=== PATIENT | female | born 1975 | race Caucasian/White ===

== ENCOUNTER 2020-06-27 14:47 | Emergency (ER) | payer BC, SELFPAY ==
--- NOTE | 2020-06-27 15:36 | PC.NURSE ---
Pt brought from lobby to ED after registration called and stated that pt felt like she was going to pass out.
--- NOTE | 2020-06-27 15:44 | PC.NURSE ---
Covid swab sent to lab.
--- NOTE | 2020-06-27 15:45 | PC.NURSE ---
Presented to patient room to do EKG. Pt questioned why the test was to be done. After explaining the significance and importance, pt still refused at this time.
[2020-06-27 15:48] VITALS: BP 143/95; PULSE 97; RESP 18; TEMP 36.9; O2SAT 96; BMI 32.5
[2020-06-27 16:00] VITALS: BP 127/89; PULSE 90; RESP 18; O2SAT 95
--- NOTE | 2020-06-27 16:20 | HMH.EDGENADL ---
ED Disposition Clinical Impression: Dehydration Diarrhea Qualifiers: Diarrhea type: unspecified type Qualified Code(s): R19.7 - Diarrhea, unspecified Disposition: Home, Self-Care Condition on Discharge: Good Instructions: DI for Dehydration -- Adult, DI for Diarrhea and Traveler's Diarrhea -- Adult, DI for Nausea -- Adult Additional Instructions: Continue Pedialyte for hydration. Also drink plenty of water. Zofran as needed for nausea. Follow-up with primary care provider if not improved this week. Prescriptions: Ondansetron [Zofran 4mg ODT] 4 mg PO TIDP PRN #10 tab.rapdis PRN Reason: Nausea And Vomiting Prescription Printed Referrals: Jean Millan MD [Primary Care Provider] - - Critical Care Critical Care Time: No Attestation: On 06/27/20, the high probability of a clinically significant, sudden or life threatening deterioration of the following system(s) required my full and direct attention, intervention and personal management. The time I documented below is in addition to time spent performing reported procedures but includes the following listed in this critical care notation. Medical Decision Making - Hero Inquiry Pt receiving controlled substance: No Vital Signs: 06/27/20 15:48 06/27/20 16:00 06/27/20 16:30 Temperature 98.4 F Temperature Source Oral Pulse Rate Pulse Rate [Right Radial] 97 H 90 85 Respiratory Rate 18 18 18 Blood Pressure Blood Pressure [Right Arm] 143/95 H 127/89 129/95 H Blood Pressure Mean [Right Arm] 111 101 106 Blood Pressure Source Blood Pressure Source [Right Arm] Automatic Cuff Blood Pressure Position Blood Pressure Position [Right Arm] Sitting 02 Sat by Pulse Oximetry 96 95 98 Oxygen Delivery Method Room Air Room Air Room Air 06/27/20 17:42 Temperature 98.4 F Temperature Source Oral Pulse Rate 80 Pulse Rate [Right Radial] Respiratory Rate 20 Blood Pressure 137/90 Blood Pressure [Right Arm] Blood Pressure Mean [Right Arm] Blood Pressure Source Automatic Cuff Blood Pressure Source [Right Arm] Blood Pressure Position Sitting Blood Pressure Position [Right Arm] 02 Sat by Pulse Oximetry Oxygen Delivery Method Room Air - Lab Data Lab results reviewed: Yes: I reviewed the patient's lab results. Lab Results 06/27/20 16:18: WBC 6.0, RBC 5.44 H, Hgb 16.1, Hct 49.6 H, MCV 91.1, MCH 29.6, MCHC 32.5, RDW 14.3, Plt Count 307, MPV 7.8, Neut % (Auto) 69.9, Lymph % (Auto) 24.0, Dewitt % (Auto) 4.9, Eos % (Auto) 0.3, Baso % (Auto) 0.9, Neut # (Auto) 4.2, Lymph # (Auto) 1.5, Dewitt # (Auto) 0.3, Eos # (Auto) 0.0, Baso # (Auto) 0.1 06/27/20 16:18: Sodium 137, Potassium 3.9, Chloride 104, Carbon Dioxide 18 L, Anion Gap 18.9 H, BUN 24 H, Creatinine 1.00, Estimated Creat Clear 97, Estimated GFR 60, Est GFR ( Amer) 73, Glucose 126 H, Calcium 9.7, Total Bilirubin 0.7, AST 42 H, ALT 50, Alkaline Phosphatase 92, Total Protein 9.5 H, Albumin 5.1 H, Globulin 4.4 H, Albumin/Globulin Ratio 1.2 Result diagrams: 06/27/20 16:18 06/27/20 16:18 Orders (Tests/Meds): ED MEDICATIONS Discontinued Medications Generic Name Dose Route Start Last Admin Trade Name Hoangq PRN Reason Stop Dose Admin Sodium Chloride 1,000 mls @ 999 mls/hr 06/27/20 16:00 06/27/20 16:08 Sod Chlor 0.9% 1000ml Bag IV 06/27/20 17:00 999 mls/hr .Q1H1M SARAVANAN Administration Sodium Chloride 1,000 mls @ 999 mls/hr 06/27/20 17:45 06/27/20 17:42 Sod Chlor 0.9% 1000ml Bag IV 06/27/20 18:45 Not Given .Q1H1M SARAVANAN Ondansetron HCl 4 mg 06/27/20 15:55 06/27/20 16:08 Ondansetron 4mg/2ml Vial IV 06/27/20 15:56 4 mg ONCE ONE Administration ORDERS Category Date Time Status Covid-19 Nasal PCR ([facility]) Routine Lab 06/27/20 15:40 Received - Reevaluation(s) Time: 17:27 Reevaluation #1: Feels much better after 1 L normal saline. Would like to be discharged. General Adult HPI - General Chief complaint: Nausea/Vomiting/Diarrhea Stated
[2020-06-27 16:30] VITALS: BP 129/95; PULSE 85; RESP 18; O2SAT 98
[2020-06-27 16:30] LABS: Basophils # 0.1 K/mm3 (0-0.2); Basophils % 0.9 % (0.1-2.0); Eosinophils % 0.3 % (0.1-12.0); Hematocrit 49.6 % (37.0-47.0); Hemoglobin 16.1 g/dL (12.2-16.2); Lymphocytes # 1.5 K/mm3 (0.7-4.5); Mean Corpuscular HGB Conc 32.5 g/dL (31.8-35.4); Mean Corpuscular Hemoglobin 29.6 pg (27.0-31.2); Mean Corpuscular Volume 91.1 fl (81-99); Mean Platelet Volume 7.8 fl (7.4-10.4); Monocytes # 0.3 K/mm3 (0.1-1.0); Monocytes % 4.9 % (1.7-9.3); Neutrophils # 4.2 K/mm3 (1.8-7.8); Neutrophils % 69.9 % (37.0-80.0); Platelet Count 307 K/mm3 (142-424); Red Blood Count 5.44 M/mm3 (4.20-5.40); Red Cell Distribution Width 14.3 % (11.5-17.5)
[2020-06-27 16:32] LABS: Chloride 104 mmol/L (98-107); Potassium 3.9 mmoL/L (3.5-5.1); Sodium 137 mmol/L (136-145)
[2020-06-27 16:34] LABS: Blood Urea Nitrogen 24 mg/dl (7-17); Creatinine Clearance Estimated 97 mL/min (50-200); Estimated Glomerular Filt Rate 60 ml/min (>60); GFR (African American) 73 ML/MIN (>60)
[2020-06-27 16:35] LABS: Alanine Aminotransferase 50 U/L (12-78); Albumin Level 5.1 g/dl (3.5-5.0); Albumin/Globulin Ratio 1.2 (1.1-1.8); Alkaline Phosphatase 92 U/L (38-126); Anion Gap 18.9 mEq/L (5-15); Aspartate Amino Transferase 42 U/L (14-36); Bilirubin,Total 0.7 mg/dl (0.2-1.3); Calcium 9.7 mg/dl (8.4-10.2); Carbon Dioxide 18 mmol/L (22.0-30.0); Globulin 4.4 g/dL (1.3-3.2); Glucose 126 mg/dl (74-100); Total Protein,Serum 9.5 g/dl (6.3-8.2)
[2020-06-27 17:42] VITALS: BP 137/90; PULSE 80; RESP 20; TEMP 36.9; O2SAT 97
--- NOTE | 2020-06-28 05:57 | PC.NURSE ---
Pt called requesting results of COVID swab. Pt given results of negative.
== END 2020-06-27 17:43 | disposition home or self-care (01) ==
LOC: UTC 14:53 → ER 15:36
PROVIDERS: Emergency Provider Emergency Medicine; PCP Family Medicine
DX: Z20.822 Contact with and (suspected) exposure to COVID-19 (principal); E86.0 Dehydration
CPT/HCPCS: 80053; 85025; 96365; 96375; 99282; J2405; U0003

== ENCOUNTER 2023-10-05 08:41 | Outpatient (CLI) | payer BC, SELFPAY ==
--- NOTE | 2023-10-05 08:53 | MR_ITS ---
FINAL REPORT CLINICAL HISTORY: chronic neck pain, BUE radiculopathy 18 ML PROHANCE COMPARISON: None FINDINGS: Multi planar MR imaging was obtained of the cervical spine with and without contrast. There is abnormal decreased signal throughout the cervical discs. The vertebrae are of normal height. There is no malalignment. The cervical cord demonstrates normal signal and configuration. C2-C3: There is no evidence of significant disc bulge or protrusion. There is no significant facet hypertrophy. C3-C4: A small annular bulge is present. There is no significant canal or neural foraminal stenosis. C4-C5: A small annular bulge is present with mild left neural foraminal narrowing. C5-C6: There is no evidence of significant disc bulge or protrusion. There is no significant facet hypertrophy. C6-C7: A small annular bulge is present without evidence of significant canal or neural foraminal narrowing. C7-T1: There is no evidence of significant disc bulge or protrusion. There is no significant facet hypertrophy. There is no abnormal contrast enhancement. IMPRESSION: Mild degenerative change is present, without significant canal stenosis and only mild neural foraminal narrowing at the C4-5 level on the left. Reviewed, Interpreted and Dictated by Rafa Xie MD Transcribed by Shasha Morin Authenticated and [facility]
--- NOTE | 2023-10-05 08:53 | MR_ITS ---
FINAL REPORT CLINICAL HISTORY: migraines, chronic neck pain, BUE radiculopathy 18 ML PROHANCE COMPARISON: None FINDINGS: Multiplanar MR imaging of the brain was performed without and with contrast. There is no evidence of intracranial hemorrhage or mass. There are a few tiny foci of scattered increased T2 signal in the deep white matter, which do not enhance after contrast administration. No abnormal extra-axial fluid collection is seen. The ventricular size is within normal limits. There is no evidence of shift of the midline structures. The posterior fossa and brainstem have an unremarkable appearance. No area of abnormal restricted diffusion is identified. No abnormal contrast enhancement is seen. Normal major vessel vascular flow voids are noted. IMPRESSION: Few tiny scattered foci of increased signal in the deep white matter, nonenhancing after contrast administration. These can be seen in patients with migraine or mild chronic ischemic/gliotic microvascular change. Less likely are vasculitis or demyelinating disease. Reviewed, Interpreted and Dictated by Rafa Xie MD Transcribed by Shasha Morin Authenticated and [facility]
--- NOTE | 2023-10-05 10:28 | MM_ITS ---
PROCEDURE INFORMATION: Exam: MG Bilateral Screening 3D Mammography Exam date and time: 10/05/2023 10:17 AM Age: 48 years old Clinical indication: Screening mammogram TECHNIQUE: Imaging protocol: Bilateral Screening tomosynthesis and 2D mammography including computer-aided detection (CAD) when performed. COMPARISON: 1. MG MY Digital Frank Screen BILAT 11/29/2020 8:06 AM 2. MG MY Digital Frank Screen BILAT 08/19/2018 11:35 AM FINDINGS: MAMMOGRAPHY: Breast composition: There are scattered areas of fibroglandular density. Mass: None. Architectural distortion: No new or suspicious architectural distortion. Calcifications: No new or suspicious calcifications are present Asymmetric density: No new or suspicious asymmetric density is present Skin thickening: None. Axillary adenopathy: None. IMPRESSION: No mammographic evidence of malignancy. Recommend annual screening mammography unless otherwise clinically indicated. ASSESSMENT: BI-RADS category 1: Negative.
[2023-10-05] MEDS: SODIUM CHLORIDE 0.9% 10ML SYR (RAD ONLY) 10 ML IV (12:17)
[2023-10-05] MEDS: GADOTERIDOL INJ 17ML SYRINGE 18 ML IV (12:18)
== END 2023-10-05 23:59 ==
LOC: RAD 08:43
PROVIDERS: PCP Nurse Practitioner Family; Visit Provider Nurse Practitioner Family
DX: G43.909 Migraine, unspecified, not intractable, without status migrainosus (principal); M54.10 Radiculopathy, site unspecified; M54.2 Cervicalgia; Z12.31 Encounter for screening mammogram for malignant neoplasm of breast
CPT/HCPCS: 70553; 72156; 76376; 77063; 77067; A9576

== ENCOUNTER → 2024-01-11 10:11 | Outpatient (CLI) | payer BC, SELFPAY | LOC: SL 10:14 | PROVIDERS: PCP Nurse Practitioner Family; Visit Provider Nurse Practitioner Family | DX: R06.83 Snoring (principal) | CPT/HCPCS: G0399 ==

== ENCOUNTER 2024-04-07 08:45 | Day surgery (SDC) | payer BC, SELFPAY ==
--- NOTE | 2024-04-01 12:53 | SUR.PREOP ---
pre op phone call made at 1250 on 04/01. voicemail left with call back number
[2024-04-03 17:01] VITALS: BMI 32.8
--- NOTE | 2024-04-07 08:59 | P.PNANES_ITS ---
[facility] Disclaimer: The information contained in this section may have been updated after the patient was seen, as this information can be updated by other users. Medical History Diarrhea Dehydration Fractured skull Brain bleed TBI (traumatic brain injury) Hypertension Surgical History No significant past surgical history Family History Mother Colon polyps Thyroid disorder Hyperlipidemia Hypertension Stricture esophagus Lesion of liver Father Colon polyps Aneurysm Social History Smoking Status: Never smoker alcohol intake: never substance use type: denies use current occupational status: employed Travel in the last 8 weeks: None [facility] Anesthesia Checklist Patient Identification Patient Identification: Arm Band and Verbal (Name & ) Structural Data Admitted From: Home Planned Operative Procedure/s: Colonoscopy Consent for Planned Operative Procedure(s) Verified: Yes Verified Documents: Surgical Consent and History and Physical NPO Status Verified Time NPO: 00:00 Chart Verification Results Verified: HCG Additional verifications Anesthesia Reactions: No Airway Assessment Mallampati Score:: Class II C-Spine Mobility Assessed: Yes TMJ Mobility Assessed: Yes Dentition: Good Dentition Neurological Assessment Level of Consciousness: Awake Hx Seizures: No Numbness or tingling in extremities: No Anesthesia Plan Anesthesia Risk discussed: Yes Anesthesia Plan: Verified ASA Class: II Anesthesia Type: MAC
[2024-04-07] MEDS: LACTATED RINGERS 1000ML 1,000 ML 25 ML IV (09:06)
[2024-04-07 09:11] VITALS: BP 142/102; PULSE 75; RESP 18; TEMP 36.9; O2SAT 98
[2024-04-07 09:25] LABS: Urine Pregnancy, HCG Qual. Negative (Negative)
--- NOTE | 2024-04-07 09:31 | EXP.HP ---
History of Present Illness *Admission Date: 04/07/24 *Reason for visit:: Screening *History of present illness: Mrs. Hayward is a 48-year-old female who is here for screening colonoscopy. The examination is deemed medically necessary for colonoscopy screening. The patient has been seen, interviewed and examined prior to the procedure by both myself and the anesthesia provider. [facility] Disclaimer: The information contained in this section may have been updated after the patient was seen, as this information can be updated by other users. Medical History Diarrhea Dehydration Fractured skull Brain bleed TBI (traumatic brain injury) Hypertension Surgical History No significant past surgical history Family History Mother Colon polyps Thyroid disorder Hyperlipidemia Hypertension Stricture esophagus Lesion of liver Father Colon polyps Aneurysm Social History Smoking Status: Never smoker alcohol intake: never substance use type: denies use current occupational status: employed Travel in the last 8 weeks: None Other Medical History Have you received the Flu Vaccine for this season: No Have you received the Pneumonia Vaccine: No Review of Systems Review of Systems Review of systems (narrative): Negative *Cardiovascular Comments: Negative *Gastrointestinal Comments: Negative *Genitourinary Comments: Negative *Musculoskeletal Comments: Negative *Neurologic Comments: Negative Meds Home Medications and Allergies Home Medications ?Medication ?Instructions ?Recorded ?Confirmed ?Type losartan 50 mg tablet 50 mg PO DAILY #90 tabs 09/10/23 04/03/24 Rx metoprolol succinate 100 mg 100 mg PO DAILY #90 tabs 09/10/23 04/03/24 Rx tablet,extended release 24 hr zfwkdgl-khudcgikuwmzb-vzwgdimn 250 1 tab PO ONCE PRN Headache 02/04/24 04/03/24 History mg-250 mg-65 mg tablet (Excedrin Extra Strength) cyanocobalamin (vitamin B-12) 5,000 mcg PO DAILY 02/04/24 04/03/24 History 1,000 mcg/15 mL oral liquid multivitamin 1 tab PO DAILY 02/04/24 04/03/24 History ubrogepant 100 mg tablet (Ubrelvy) 100 mg PO ONCE PRN migraine 02/04/24 04/03/24 Rx headache #30 tabs New Prescriptions to Start Prescriptions: Allergies Allergy/AdvReac Type Severity Reaction Status Date / Time morphine Allergy Other Verified 04/07/24 09:10 Exam Data for Last 24 hours Vital signs and Labs for Last 24 Hours: Temp Pulse Resp BP Pulse Ox O2 Del Method 98.4 F 75 18 142/102 H 98 Room Air 04/07/24 09:11 04/07/24 09:11 04/07/24 09:11 04/07/24 09:11 04/07/24 09:11 04/07/24 09:11 Laboratory Results - last 24 hr 04/07/24 09:00: Urine HCG, Qual Negative *Routine HEENT Exam Head: Present normocephalic Eye: Present EOMI and PERRL ENT: Present mucous membranes moist *Routine Neck Exam Neck: Present supple *Routine Respiratory Exam Respiratory: Present CTA bilaterally *Routine Cardiovascular Exam Cardiovascular: Present RRR *Routine Abdominal Exam Abdominal: Present soft and normoactive bowel sounds; Absent tenderness *Routine Rectal Exam Rectal:: deferred *Routine Genitalia Exam Genitalia:: deferred *Routine Extremities Exam Extremities: Absent cyanosis, clubbing or edema *Routine Skin Exam Skin: Present warm; Absent rash *Routine Neurological Exam Neurological: Present alert and oriented X3 Assessment and Plan *Assessment and plan (1) Colon cancer screening: Status: Acute Category: Medical Code(s): Z12.11 - Encounter for screening for malignant neoplasm of colon Plan A/P: 1. Screening for colon cancer is the preprocedural diagnosis. The patient will be anesthetized/sedated using MAC sedation. The patient has been seen and examined. Cardiac and lung assessment prior to the examination is stable. Proceed with planned colonoscopy
[2024-04-07 09:37] VITALS: O2SAT 100
--- NOTE | 2024-04-07 09:42 | HMH.PROCNOTE ---
[facility] Procedure Note Date: 04/07/24 Time: 09:55 Procedure Note:: Colonoscopy Procedure Report: Colonoscopy Endoscopist: Saeid Self II, MD Referring physician: DAE Rodriguez Date of Procedure: April 07, 2024 Equipment: Olympus 190 variable stiffness pediatric colonoscope Sedation: MAC sedation Indication: Mrs. Hayward is a 48-year-old female who is here for initial screening colonoscopy. She reports no abdominal pain, weight loss, change in her bowel habits or rectal bleeding. Does have occasional spotting of blood from internal hemorrhoids. She reports no family history of colon cancer. She does have a family of colon polyps on her mother's and father side. Procedure: Prior to the procedure, a history and physical exam was performed, and patient's medications and allergies were reviewed. The risks, benefits and alternatives of the sedation and procedure were discussed with the patient. All questions were answered and informed consent was obtained. The patient was brought to the procedure room. Patient identification and proposed procedure were verified by the physician and the nurse. The patient was placed in a left lateral decubitus position and the scope was passed under direct vision. Throughout the procedure, the patient's blood pressure, pulse, and oxygen saturations were monitored continuously. The colonoscopy was accomplished without difficulty. The patient tolerated the procedure well. Findings: On digital rectal examination there was normal rectal tone. There were no external hemorrhoids. The colonoscope was introduced through the anal canal to the rectum and advanced to the cecum. The ileocecal valve and appendiceal orifice were identified. The scope was advanced a short distance into the ileum which appeared grossly normal. The scope was then withdrawn into the colon. The cecum, ascending, transverse, descending, sigmoid and rectum were grossly normal. There were no mucosal abnormalities identified. Upon retroflexion within the rectum there were grade 1 internal hemorrhoids.The preparation was excellent throughout with [place] Preparation Score of 9. The cecal time was 10 minutes. Impression: 1. Normal colonoscopy with intubation of the terminal ileum 2. Grade 1 internal hemorrhoids Plan: The patient will not require screening/surveillance colonoscopy again for 10 years by ACS guidelines. I will recommend bulking fiber psyllium supplementation on a maintenance basis.
[2024-04-07 09:57] VITALS: BP 114/74; PULSE 78; RESP 18; TEMP 36.1; O2SAT 98
[2024-04-07 10:03] VITALS: BP 113/76; PULSE 71; RESP 18; O2SAT 100
[2024-04-07 10:13] VITALS: BP 126/84; PULSE 69; RESP 18; O2SAT 98
[2024-04-07 10:28] VITALS: BP 130/78; PULSE 73; RESP 18; O2SAT 98
== END 2024-04-07 10:28 | disposition home or self-care (01) ==
PROVIDERS: PCP Nurse Practitioner Family; Visit Provider Internal Medicine Gastroenterology
PROC: (CPT G0121; principal; 2024-04-07 10:00)
DX: Z12.11 Encounter for screening for malignant neoplasm of colon (principal); K64.0 First degree hemorrhoids
CPT/HCPCS: G0121; 81025; J7120

== ENCOUNTER 2024-08-21 13:23 | Outpatient (CLI) | payer BC, SELFPAY | END 2024-08-21 23:59 | disposition home or self-care (01) | LOC: LAB.DROPOF 08-25 13:23 | PROVIDERS: PCP Nurse Practitioner Family; Visit Provider Nurse Practitioner Family | DX: N39.0 Urinary tract infection, site not specified (principal); R39.89 Other symptoms and signs involving the genitourinary system; M54.50 Low back pain, unspecified; M25.559 Pain in unspecified hip | CPT/HCPCS: 87086 ==

== ENCOUNTER 2024-08-27 14:14 | Outpatient (CLI) | payer BC, SELFPAY ==
--- NOTE | 2024-08-27 14:17 | XR_ITS ---
FINAL REPORT CLINICAL HISTORY: urinary symptoms COMPARISON: None FINDINGS: SINGLE VIEW ABDOMEN A single view of the abdomen was obtained. There is a nonobstructive bowel gas pattern. There are no abnormally dilated loops of small bowel. There are several right upper quadrant calcifications measuring up to 8 mm in size, that may represent gallstones. IMPRESSION: Nonobstructive bowel gas pattern. Right upper quadrant calcifications that may represent gallstones. Reviewed, Interpreted and Dictated by Rafa Xie MD Transcribed by Shasha Morin Authenticated and [facility]
== END 2024-08-27 23:59 | disposition home or self-care (01) ==
LOC: RAD 14:15
PROVIDERS: PCP Nurse Practitioner Family; Visit Provider Nurse Practitioner Family
DX: R39.89 Other symptoms and signs involving the genitourinary system (principal); N39.0 Urinary tract infection, site not specified
CPT/HCPCS: 74018

== ENCOUNTER 2024-09-01 07:55 | Outpatient (CLI) | payer BC, SELFPAY ==
--- NOTE | 2024-09-01 07:56 | US_ITS ---
FINAL REPORT CLINICAL HISTORY: RUQ pain, gallstones COMPARISON: None FINDINGS: Sonographic images of the right upper quadrant were obtained. The pancreas is partially obscured. There is fatty infiltration of the liver. There is a single stone in the gallbladder neck measuring 7 mm. There is no gallbladder wall thickening or distention. There is no evidence of biliary ductal dilatation. The common duct measures 2 mm. There is a 3.3 cm simple cyst in the upper pole of the right kidney. IMPRESSION: Uncomplicated cholelithiasis. Reviewed, Interpreted and Dictated by Daniel Islas MD Transcribed by Elisabeth Ty Authenticated and [facility]
== END 2024-09-01 23:59 | disposition home or self-care (01) ==
LOC: RAD 07:56
PROVIDERS: PCP Nurse Practitioner Family; Visit Provider Nurse Practitioner Family
DX: K80.20 Calculus of gallbladder without cholecystitis without obstruction (principal)
CPT/HCPCS: 76705

== ENCOUNTER 2024-09-14 04:36 | Emergency (ER) | payer BC, SELFPAY ==
[2024-09-14 04:44] VITALS: BP 101/82; PULSE 87; RESP 18; TEMP 36.9; O2SAT 97; BMI 33.5
[2024-09-14 05:00] VITALS: BP 121/74; PULSE 84; RESP 16; O2SAT 100
--- NOTE | 2024-09-14 05:10 | CT_ITS ---
PROCEDURE INFORMATION: Exam: CT Abdomen And Pelvis With Contrast Exam date and time: 09/14/2024 5:57 AM Age: 49 years old Clinical indication: Abdominal pain; Flank; Left; Additional info: L flank pain into groin, bladder urgency/freq TECHNIQUE: Imaging protocol: Computed tomography of the abdomen and pelvis with contrast. Radiation optimization: All CT scans at this facility use at least one of these dose optimization techniques: automated exposure control; mA and/or kV adjustment per patient size (includes targeted exams where dose is matched to clinical indication); or iterative reconstruction. Contrast material: ISOVUE; Contrast volume: 75 ml; Contrast route: IV; COMPARISON: CR XR KUB 08/27/2024 2:23 PM FINDINGS: Lungs: The lung bases are clear. Liver: Hepatic steatosis. No focal liver lesion identified. Gallbladder and biliary ducts: Cholelithiasis but no CT evidence of cholecystitis. Pancreas: The pancreas is normal in appearance. No evidence of pancreatic ductal dilatation. Spleen: The spleen is normal in appearance. Adrenal glands: The adrenal glands are normal in appearance. Kidneys and ureters: There is moderate left hydronephrosis and left hydroureter secondary to a 1 mm and 4 mm calculus in the distal left ureter. There are mild inflammatory changes surrounding the left kidney. There is subtle diffuse hypoenhancement of the left kidney relative to the right. There is a simple appearing 3.5 cm right renal cortical cyst which does not appear to require imaging follow-up. Stomach and bowel: The small bowel loops are not thickened and are nondilated. The colon is unremarkable. Appendix: The appendix is normal in appearance. No evidence of appendicitis. Intraperitoneal space: Unremarkable. No free air. No significant fluid collection. Vasculature: Unremarkable. No abdominal aortic aneurysm. Lymph nodes: Unremarkable. No enlarged lymph nodes. Urinary bladder: Unremarkable as visualized. Reproductive: Simple appearing 3 cm right ovarian cyst. Small left ovarian follicle. Bones/joints: No acute osseous lesions. There are mild chronic degenerative changes in the lower thoracic spine and lower lumbar spine. Soft tissues: Unremarkable. IMPRESSION: 1. Moderate left hydronephrosis and left hydroureter secondary to a 1 mm and a 4 mm calculus in the distal left ureter. 2. Hepatic steatosis. 3. Cholelithiasis but no CT evidence of cholecystitis. 4. Bilateral cystic adnexa. COMMENTS: Consistent with the [employer]'s Incidental Findings Committee white paper (J Am Roddy Radiol 2018): Any incidental renal lesion less than 1 cm or classified as too small to characterize, or any incidental cystic renal lesion characterized as simple-appearing, is likely benign. No follow-up imaging is recommended for these lesions per consensus recommendations based on imaging criteria.
[2024-09-14 05:21] LABS: Albumin Level 4.4 g/dl (3.5-5.0); Chloride 103 mmol/L (98-107); Potassium 4.6 mmoL/L (3.5-5.1); Sodium 137 mmol/L (136-145)
[2024-09-14 05:22] LABS: HCG Qualitative, Serum Negative (Negative)
[2024-09-14 05:23] LABS: Alanine Aminotransferase 24 U/L (12-78); Anion Gap 15.6 mEq/L (5-15); Aspartate Amino Transferase 37 U/L (14-36); Blood Urea Nitrogen 17 mg/dl (7-17); Carbon Dioxide 23 mmol/L (22.0-30.0); Creatinine Clearance Estimated 106 mL/min (50-200); Estimated Glomerular Filt Rate 67 ml/min (>60); GFR (African American) 81 ML/MIN (>60)
[2024-09-14 05:24] VITALS: BP 129/87; PULSE 80; RESP 16; O2SAT 98
[2024-09-14 05:24] LABS: Albumin/Globulin Ratio 1.5 (1.1-1.8); Alkaline Phosphatase 53 U/L (38-126); Bilirubin,Total 0.8 mg/dl (0.2-1.3); Calcium 9.6 mg/dl (8.4-10.2); Globulin 2.9 g/dL (1.3-3.2); Glucose 123 mg/dl (74-100); Total Protein,Serum 7.3 g/dl (6.3-8.2)
[2024-09-14 05:30] VITALS: BP 144/91; PULSE 79; RESP 18; O2SAT 100
[2024-09-14 05:39] LABS: Basophils # 0.1 K/mm3 (0-0.2); Basophils % 0.5 % (0.1-2.0); Eosinophils # 0.1 K/mm3 (0.0-0.4); Eosinophils % 1.1 % (0.1-12.0); Hematocrit 36.7 % (37.0-47.0); Lymphocytes % 20.5 % (10-50); Mean Corpuscular HGB Conc 32.7 g/dL (31.8-35.4); Mean Corpuscular Hemoglobin 30.4 pg (27.0-31.2); Mean Corpuscular Volume 92.9 fl (81-99); Mean Platelet Volume 9.5 fl (7.4-10.4); Monocytes # 0.9 K/mm3 (0.1-1.0); Monocytes % 8.8 % (1.7-9.3); Neutrophils # 6.8 K/mm3 (1.8-7.8); Neutrophils % 68.8 % (37.0-80.0); Platelet Count 258 K/mm3 (142-424); Red Blood Count 3.95 M/mm3 (4.20-5.40); Red Cell Distribution Width 12.9 % (11.5-17.5); White Blood Count 9.8 K/mm3 (4.8-10.8)
[2024-09-14 05:47] LABS: Appearance,Urine Slightly Cloudy (Clear); Bilirubin,Urine Negative (Negative); Blood, Urine 2+ (Negative); Color,Urine YELLOW (Yellow); Glucose,Urine (UA) Negative (Negative); Ketones,Urine Negative (Negative); Leukocyte Esterase,Urine Negative (Negative); Microscopic, Urine URINE MICROSCOPIC (MICROSCOPIC); Nitrate,Urine Negative (Negative); PH,Urine 5.5 (5.0-8.5); Protein,Urine Negative (Negative); Specific Gravity, Urine >= 1.030 (1.005-1.030); Urobilinogen,Urine 0.2 EU/dl (0.2)
[2024-09-14 05:49] LABS: INR 0.93 (0.9-1.1); Prothrombin Time 10.5 seconds (10.1-12.5)
[2024-09-14 05:59] LABS: Bacteria,Urine Trace /lpf; Mucus,Urine Trace /lpf; WBC,Urine Occasional #/hpf (0-3)
--- NOTE | 2024-09-14 06:00 | ED_ITS ---
Discharge Plan Disposition Patient Disposition: Home, Self-Care Condition: Good Prescriptions Prescriptions: New naproxen 500 mg tablet,delayed release (DR/EC) 500 mg PO BID Qty: 10 0RF tamsulosin 0.4 mg capsule 0.4 mg PO DAILY Qty: 14 0RF oxycodone 5 mg tablet 5 mg PO Q8H PRN (Reason: pain) Qty: 5 0RF ondansetron 4 mg tablet,disintegrating 4 mg PO Q8H PRN (Reason: nausea and vomiting) 5 Days Qty: 10 0RF No Action losartan 50 mg tablet 50 mg PO DAILY Qty: 90 3RF metoprolol succinate 100 mg tablet extended release 24 hr 100 mg PO DAILY Qty: 90 3RF Excedrin Extra Strength 250-250-65 mg tablet 1 tab PO ONCE PRN (Reason: Headache) multivitamin Tablet 1 tab PO DAILY cyanocobalamin (vitamin B-12) 1,000 mcg/15 mL liquid 5,000 mcg PO DAILY Patient Comments: Pt takes [place] B12 Liquid 5,000 mcg per 1 mL hydroxyzine HCl 25 mg tablet 25 mg PO TID PRN (Reason: anxiety) Qty: 90 0RF desvenlafaxine succinate [Pristiq] 50 mg tablet extended release 24 hr 50 mg PO DAILY Qty: 90 3RF nitrofurantoin monohyd/m-cryst [Macrobid] 100 mg capsule 100 mg PO Q12H 7 Days Qty: 14 0RF Rx Instructions: must administer with a meal/food Ubrelvy 100 mg tablet 100 mg PO ONCE PRN (Reason: migraine headache) Qty: 30 1RF Referrals Follow up/Referrals: Viviane Sullivan APRN [Primary Care Provider] - See instructions Clinical Impressions Clinical Impression: Urolithiasis Instructions Patient Instructions: DI for Kidney Stones Print Language Print Language: Maldivian Discharge ED Provider: Suyapa Lozano General Adult HPI <Makenzie Bush MD - Last Filed: 09/14/24 07:04> General Chief complaint: Back Pain/Injury Stated complaint: pain in left side back and legs Time Seen by Provider: 09/14/24 04:59 Mode of Arrival: Ambulatory Source of Information: Patient Description of Symptoms (Recalled from ER Triage Doc. by RN): PT HERE W/ C/O L SIDED FLANK PAIN THAT RADIATES INTO GROIN. SEES UROLOGIST ON SUNDAY HOWEVER COULDNT WAIT DUE TO INCREASED PAIN. PT REPORTS URINARY HESITANCY AND HOT FLASHES. History of Present Illness HPI narrative: 49-year-old female presents to the ER with urinary complaints. She has a history of hypertension. She reports for multiple weeks she has felt a sensation of constantly needing to use the restroom. Sometimes she has extreme urgency and she describes it as a sensation of always feeling like you need to hold your urine . Patient reports yesterday evening she developed left low back pain and it started to radiate into the groin. She states her pain continued to progressively worsen and was Uncomfortable all night. She reports she was unable to sleep. She developed sharp, shooting pain. She also states that pressure sensation in her bladder is worse than normal. She has no history of prolapse and does not describe a sensation of her organs falling out. She states she feels like she chronically needs to use the restroom. She states she was placed on antibiotics briefly because they thought she had a UTI but her culture was negative so she was taken off antibiotics. She reports no painful urination, no hematuria, no fevers or chills but states she was having hot flashes. No chest pain or difficulty breathing, no nausea, vomiting, or changes in bowel habits. Related Data Home Medications ?Medication ?Instructions ?Recorded ?Confirmed [id number] 250 1 tab PO ONCE PRN Headache 02/04/24 08/21/24 mg-250 mg-65 mg tablet (Excedrin Extra Strength) cyanocobalamin (vitamin B-12) 5,000 mcg PO DAILY 02/04/24 08/21/24 1,000 mcg/15 mL oral liquid multivitamin 1 tab PO DAILY 02/04/24 08/21/24 Previous Rx's ?Medication ?Instructions ?Recorded losartan 50 mg tablet 50 mg PO DAILY #90 tabs 09/10/23 metoprolol succinate 100 mg 100 mg PO DAILY #90 tabs 09/10/23 tablet,extended release 24 hr ubrogepant 100 mg tablet (Ubrelvy) 100 mg PO ONCE PRN migraine 05/09/24 headache #30 tabs hydroxyzine HCl 25 mg tablet 25 mg PO TID PRN anxiety #90 tabs 06/26/24 desvenlafaxine succinate 50 mg 50 mg PO DAILY #90 tabs 07/14/24 tablet,extended release 24 hr (Pristiq) nitrofurantoin 100 mg PO Q12H 7 days #14 caps 08/21/24 monohydrate/macrocrystals 100 mg capsule (Macrobid) naproxen 500 mg tablet,delayed 500 mg PO BID #10 tabs 09/14/24 release ondansetron 4 mg disintegrating 4 mg PO Q8H PRN nausea and 09/14/24 tablet vomiting 5 days #10 tabs oxycodone 5 mg tablet 5 mg PO Q8H PRN pain #5 tabs 09/14/24 tamsulosin 0.4 mg capsule 0.4 mg PO DAILY #14 caps 09/14/24 Allergies Allergy/AdvReac Type Severity Reaction Status Date / Time morphine Allergy Other Verified 08/21/24 11:04 [facility] <Makenzie Bush MD - Last Filed: 09/14/24 07:04> [facility] Disclaimer: The information contained in this section may have been updated after the patient was seen, as this information can be updated by other users. Medical History (Updated 09/14/24 @ 08:50 by Suyapa Lozano MD) UTI (urinary tract infection) Diarrhea Dehydration Fractured skull Brain bleed TBI (traumatic brain injury) Hypertension Surgical History No significant past surgical history Family History Mother Colon polyps Thyroid disorder Hyperlipidemia Hypertension Stricture esophagus Lesion of liver Father Colon polyps Aneurysm Social History Smoking Status: Never smoker alcohol intake: never substance use type: denies use current occupational status: employed Travel in the last 8 weeks: None Have you lived/traveled outside [place] in past 30 days?: No Contact w/someone who lives/traveled outside US past 30 days?: No Exposure to someone with infectious disease in past 14 days?: No Do you have a fever (greater than 100.4 F or 38 C)?: No Have you tested positive for COVID-19: No Exposed to someone with COVID-19 in past 14 days?: No Do you have a sore throat?: No Do you have a cough?: No Do you have any weakness?: No Do you have any diarrhea?: No Are you experiencing any unusual bleeding?: No Do you have any muscle aches/pain?: No Do you have any abdominal pain?: No Are you experiencing loss of taste or smell?: No Other Medical History Have you received the Flu Vaccine for this season: No Have you received the Pneumonia Vaccine: No <Makenzie Bush MD - Last Filed: 09/14/24 07:04> ROS Obtained: Yes Systems reviewed as appropriate & no additional complaints except as documented Per HPI Physical Exam <Makenzie Bush MD - Last Filed: 09/14/24 07:04> General General appearance: alert and in no apparent distress Head Head exam: atraumatic and normocephalic Eye Eye exam: Present PERRL and EOMI ENT ENT exam: Present mucous membranes moist Neck Neck exam: Present normal inspection and full ROM Chest Chest inspection: Present symmetric chest wall rise Respiratory Respiratory exam: Present normal lung sounds bilaterally; Absent respiratory distress, wheezes or stridor Cardiovascular Cardiovascular exam: Present regular rate and normal rhythm Abdominal Exam Abdominal exam: Present soft and tenderness (Suprapubic and left lower quadrant, mild); Absent distention, guarding, rebound or rigidity Extremities Exam Extremities exam: Present full ROM Back Exam Back exam: Present CVA tenderness (L) (Mild low left CVA); Absent CVA tenderness (R) Neurological Exam Neurological exam: Present alert and oriented X3; Absent motor sensory deficit Psychiatric Psychiatric exam: Present normal affect and normal mood Skin Skin exam: Present warm and dry Medical Decision Making <Makenzie Bush MD - Last Filed: 09/14/24 07:04> Medical Records Medical records reviewed: Yes I reviewed the patient's medical records. Screening: Per USPSTF and CDC recommendations, given the prevalence of disease in our region, it is our hospital?s policy to screen for HIV and viral Hepatitis for all patients aged 18 and over and those with ongoing risk factors. MR Comment: Patient right upper quadrant ultrasound that demonstrated uncomplicated cholelithiasis on 08/28/2024. This was performed after KUB had been ordered and demonstrated possible right upper quadrant stone. Patient reports the x-ray had been ordered to evaluate her urinary concerns. Review of note from Dr. Dennis from August 21, 2024 demonstrates patient presented with UTI symptoms including urgency and hesitancy with abdominal pain and pressure with low back pain. He believed her UA in the office was consistent with UTI so he started her on Macrobid. Urine culture from that encounter demonstrated no growth after 2 days. Hero Inquiry Pt receiving controlled substance: No Vital Signs: 09/14/24 04:44 09/14/24 05:00 09/14/24 05:24 Temperature 98.4 F Temperature Source Oral Pulse Rate 84 80 Pulse Rate [Apical] 87 Respiratory Rate 18 16 16 Blood Pressure 121/74 129/87 Blood Pressure [Right Arm] 101/82 L Blood Pressure Mean 84 101 Blood Pressure Mean [Right Arm] 88 Blood Pressure Source Blood Pressure Position 02 Sat by Pulse Oximetry 97 100 98 Oxygen Delivery Method Room Air 09/14/24 05:30 09/14/24 06:58 09/14/24 09:00 Temperature 98.4 F Temperature Source Oral Pulse Rate 79 73 73 Pulse Rate [Apical] Respiratory Rate 18 16 16 Blood Pressure 144/91 H 126/84 126/84 Blood Pressure [Right Arm] Blood Pressure Mean 108 98 Blood Pressure Mean [Right Arm] Blood Pressure Source Automatic Cuff Blood Pressure Position Supine 02 Sat by Pulse Oximetry 100 100 Oxygen Delivery Method Room Air Lab Data Lab Results 09/14/24 05:00: Sodium 137, Potassium 4.6, Chloride 103, Carbon Dioxide 23, A nion Gap 15.6 H, BUN 17, Creatinine 0.90, Estimated Creat Clear 106, Estimated GFR 67, Est GFR ( Amer) 81, Glucose 123 H, Calcium 9.6, Total Bilirubin 0.8, AST 37 H, ALT 24, Alkaline Phosphatase 53, Total Protein 7.3, Albumin 4.4, Globulin 2.9, Albumin/Globulin Ratio 1.5, Serum HCG, Qual Negative 09/14/24 05:33: WBC 9.8, RBC 3.95 L, Hgb 12.0 L, Hct 36.7 L, MCV 92.9, MCH 30.4, MCHC 32.7, RDW 12.9, Plt Count 258, MPV 9.5, Neut % (Auto) 68.8, Lymph % (Auto) 20.5, [place] % (Auto) 8.8, Eos % (Auto) 1.1, Baso % (Auto) 0.5, Neut # (Auto) 6.8, Lymph # (Auto) 2.0, [place] # (Auto) 0.9, Eos # (Auto) 0.1, Baso # (Auto) 0.1, PT 10.5, INR 0.93 09/14/24 05:42: Urine Color Yellow, Urine Appearance Slightly cloudy, Urine pH 5.5, Ur Specific [place] >= 1.030, Urine Protein Negative, Urine Glucose (UA) Negative, Urine Ketones Negative, Urine Blood 2+ A, Urine Nitrate Negative, Urine Bilirubin Negative, Urine Urobilinogen 0.2, Ur Leukocyte Esterase Negative, Urine RBC 5-10, Urine WBC Occasional, Ur Squamous Epith Cells 5-10, Urine Bacteria Trace, Urine Mucus Trace 09/14/24 05:33 09/14/24 05:00 Orders (Tests/Meds): ED MEDICATIONS Discontinued Medications Generic Name Dose Route Start Last Admin Trade Name Freq PRN Reason Stop Dose Admin Lactated Ringer's 1,000 mls @ 999 mls/hr 09/14/24 06:44 09/14/24 06:50 Lactated Ringer's 1000 Ml Bag IV 09/14/24 07:44 999 mls/hr .Q1H1M ONE Administration Iopamidol 75 ml 09/14/24 06:08 09/14/24 06:08 Iopamidol-370 (76%);100ml Bottle IV 09/14/24 06:09 75 ml ONCE ONE Administration Ketorolac Tromethamine 15 mg 09/14/24 06:44 09/14/24 06:51 Ketorolac 30mg/Ml Vial IV 09/14/24 06:45 15 mg ONCE ONE Administration Sodium Chloride 10 ml 09/14/24 06:08 09/14/24 06:08 Sodium Chloride 0.9% 10ml Syr (Rad Only) IV 10/14/24 06:07 10 ml NEEDED PRN Administration Maintain IV Site ORDERS Category Date Time Status CT abdomen pelvis w con Stat Cat Scan 09/14/24 05:10 Completed CBC w/Auto Diff [Complete Blood Count Auto Diff] Stat Lab 09/14/24 05:33 Completed CMP [Comprehensive Metabolic Panel] Stat Lab 09/14/24 05:00 Completed HCG Qualitative, Serum Stat Lab 09/14/24 05:00 Completed PT INR [Prothrombin Time INR] Stat Lab 09/14/24 05:33 Completed Urinalysis and Microscopic Stat Lab 09/14/24 05:42 Completed Medical Decision Narrative: In summary, this 49-year-old female with comorbidities described in the HPI which may not be at goal for presents to the emergency department today with urinary urgency, hesitancy, pressure, left flank pain with sharp shooting pains into the groin. On initial evaluation patient is hemodynamically stable, afebrile, currently reports her pain is tolerable, physical exam notable for left lower quadrant tenderness to palpation which is mild as well as suprapubic discomfort with palpation. Additionally patient has mild low left CVA tenderness with no midline tenderness. Differential diagnosis includes but is not limited to urinary tract infection, pyelonephritis, kidney stone, I considered the possibility of , kidney dysfunction, bladder mass, bladder spasm, among others. Based on these concerns, I ordered serum labs, CT imaging. Patient is not requesting pain medication at this time. Labs personally reviewed demonstrate no leukocytosis, mild anemia with hemoglobin 12.0 nonactionable. Platelets normal. PT/INR normal, CMP nonactionable, hCG negative, UA with blood and contaminated with squamous cells but only occasional WBCs, trace bacteria, nitrates negative. No evidence of infection. CT abdomen pelvis personally interpreted demonstrates right renal cyst as well as I believe a left ureteral stone with moderate hydronephrosis. Radiology read pending at the time of physician handoff. Patient is receiving Toradol and IV fluids. Patient handed off to in stable condition pending radiology reads. <Suyapa Lozano MD - Last Filed: 09/14/24 15:55> Vital Signs: 09/14/24 04:44 09/14/24 05:00 09/14/24 05:24 Temperature 98.4 F Temperature Source Oral Pulse Rate 84 80 Pulse Rate [Apical] 87 Respiratory Rate 18 16 16 Blood Pressure 121/74 129/87 Blood Pressure [Right Arm] 101/82 L Blood Pressure Mean 84 101 Blood Pressure Mean [Right Arm] 88 Blood Pressure Source Blood Pressure Position 02 Sat by Pulse Oximetry 97 100 98 Oxygen Delivery Method Room Air 09/14/24 05:30 09/14/24 06:58 09/14/24 09:00 Temperature 98.4 F Temperature Source Oral Pulse Rate 79 73 73 Pulse Rate [Apical] Respiratory Rate 18 16 16 Blood Pressure 144/91 H 126/84 126/84 Blood Pressure [Right Arm] Blood Pressure Mean 108 98 Blood Pressure Mean [Right Arm] Blood Pressure Source Automatic Cuff Blood Pressure Position Supine 02 Sat by Pulse Oximetry 100 100 Oxygen Delivery Method Room Air Lab Data Lab Results 09/14/24 05:00: Sodium 137, Potassium 4.6, Chloride 103, Carbon Dioxide 23, A nion Gap 15.6 H, BUN 17, Creatinine 0.90, Estimated Creat Clear 106, Estimated GFR 67, Est GFR ( Amer) 81, Glucose 123 H, Calcium 9.6, Total Bilirubin 0.8, AST 37 H, ALT 24, Alkaline Phosphatase 53, Total Protein 7.3, Albumin 4.4, Globulin 2.9, Albumin/Globulin Ratio 1.5, Serum HCG, Qual Negative 09/14/24 05:33: WBC 9.8, RBC 3.95 L, Hgb 12.0 L, Hct 36.7 L, MCV 92.9, MCH 30.4, MCHC 32.7, RDW 12.9, Plt Count 258, MPV 9.5, Neut % (Auto) 68.8, Lymph % (Auto) 20.5, [place] % (Auto) 8.8, Eos % (Auto) 1.1, Baso % (Auto) 0.5, Neut # (Auto) 6.8, Lymph # (Auto) 2.0, [place] # (Auto) 0.9, Eos # (Auto) 0.1, Baso # (Auto) 0.1, PT 10.5, INR 0.93 09/14/24 05:42: Urine Color Yellow, Urine Appearance Slightly cloudy, Urine pH 5.5, Ur Specific [place] >= 1.030, Urine Protein Negative, Urine Glucose (UA) Negative, Urine Ketones Negative, Urine Blood 2+ A, Urine Nitrate Negative, Urine Bilirubin Negative, Urine Urobilinogen 0.2, Ur Leukocyte Esterase Negative, Urine RBC 5-10, Urine WBC Occasional, Ur Squamous Epith Cells 5-10, Urine Bacteria Trace, Urine Mucus Trace Orders (Tests/Meds): ED MEDICATIONS Discontinued Medications Generic Name Dose Route Start Last Admin Trade Name Freq PRN Reason Stop Dose Admin Lactated Ringer's 1,000 mls @ 999 mls/hr 09/14/24 06:44 09/14/24 06:50 Lactated Ringer's 1000 Ml Bag IV 09/14/24 07:44 999 mls/hr .Q1H1M ONE Administration Iopamidol 75 ml 09/14/24 06:08 09/14/24 06:08 Iopamidol-370 (76%);100ml Bottle IV 09/14/24 06:09 75 ml ONCE ONE Administration Ketorolac Tromethamine 15 mg 09/14/24 06:44 09/14/24 06:51 Ketorolac 30mg/Ml Vial IV 09/14/24 06:45 15 mg ONCE ONE Administration Sodium Chloride 10 ml 09/14/24 06:08 09/14/24 06:08 Sodium Chloride 0.9% 10ml Syr (Rad Only) IV 10/14/24 06:07 10 ml NEEDED PRN Administration Maintain IV Site ORDERS Category Date Time Status CT abdomen pelvis w con Stat Cat Scan 09/14/24 05:10 Completed CBC w/Auto Diff [Complete Blood Count Auto Diff] Stat Lab 09/14/24 05:33 Completed CMP [Comprehensive Metabolic Panel] Stat Lab 09/14/24 05:00 Completed HCG Qualitative, Serum Stat Lab 09/14/24 05:00 Completed PT INR [Prothrombin Time INR] Stat Lab 09/14/24 05:33 Completed Urinalysis and Microscopic Stat Lab 09/14/24 05:42 Completed Medical Decision Narrative: In summary, this 49-year-old female with comorbidities described in the HPI which may not be at goal for presents to the emergency department today with urinary urgency, hesitancy, pressure, left flank pain with sharp shooting pains into the groin. On initial evaluation patient is hemodynamically stable, afebrile, currently reports her pain is tolerable, physical exam notable for left lower quadrant tenderness to palpation which is mild as well as suprapubic discomfort with palpation. Additionally patient has mild low left CVA tenderness with no midline tenderness. Differential diagnosis includes but is not limited to urinary tract infection, pyelonephritis, kidney stone, I considered the possibility of , kidney dysfunction, bladder mass, bladder spasm, among others. Based on these concerns, I ordered serum labs, CT imaging. Patient is not requesting pain medication at this time. Labs personally reviewed demonstrate no leukocytosis, mild anemia with hemoglobin 12.0 nonactionable. Platelets normal. PT/INR normal, CMP nonactionable, hCG negative, UA with blood and contaminated with squamous cells but only occasional WBCs, trace bacteria, nitrates negative. No evidence of infection. CT abdomen pelvis personally interpreted demonstrates right renal cyst as well as I believe a left ureteral stone with moderate hydronephrosis. Radiology read pending at the time of physician handoff. Patient is receiving Toradol and IV fluids. Patient handed off to in stable condition pending radiology reads. On handoff radiology reads with 1 mm and 4 mm stones. Patient's pain is tolerable amendable to discharge with outpatient follow-up with her urologist early this week with tamsulosin and naproxen prescriptions with as needed oxycodone. Strict return precautions discussed. Critical Care <Makenzie Bush MD - Last Filed: 09/14/24 07:04> Critical Care Time Critical Care Time: No
[2024-09-14] MEDS: SODIUM CHLORIDE 0.9% 10ML SYR (RAD ONLY) 10 ML IV (06:08)
[2024-09-14] MEDS: IOPAMIDOL-370 (76%);100ML BOTTLE 75 ML IV (06:08)
[2024-09-14] MEDS: LACTATED RINGERS 1000ML 1,000 ML 999 ML IV (06:50)
[2024-09-14] MEDS: KETOROLAC 30MG/ML VIAL 15 MG IV (06:51)
[2024-09-14 06:58] VITALS: BP 126/84; PULSE 73; RESP 16; O2SAT 100
[2024-09-14 09:00] VITALS: BP 126/84; PULSE 73; RESP 16; TEMP 36.9; O2SAT 100
== END 2024-09-14 09:01 | disposition home or self-care (01) ==
PROVIDERS: Emergency Medicine; Emergency Provider Student in an Organized Health Care Education/Training Program; PCP Nurse Practitioner Family
DX: N20.9 Urinary calculus, unspecified (principal); R39.15 Urgency of urination; M54.50 Low back pain, unspecified; R23.2 Flushing; R33.9 Retention of urine, unspecified; I10 Essential (primary) hypertension
CPT/HCPCS: 74177; 80053; 81001; 84703; 85025; 85610; 96361; 96374; 99285; J1885; J7120; Q9967

== ENCOUNTER 2024-11-24 16:28 | Outpatient (CLI) | payer BC, SELFPAY ==
--- NOTE | 2024-11-24 16:30 | MM_ITS ---
PROCEDURE INFORMATION: Exam: MG Bilateral Screening 3D Mammography Exam date and time: 11/24/2024 4:46 PM Age: 49 years old Clinical indication: Screening exam TECHNIQUE: Imaging protocol: Bilateral Screening tomosynthesis and 2D mammography including computer-aided detection (CAD) when performed. COMPARISON: 1. MG MM DIG SCREENING MAMM BI W/CAD 10/05/2023 10:17 AM 2. MG MY Digital Frank Screen BILAT 11/29/2020 8:06 AM FINDINGS: MAMMOGRAPHY: Breast composition: There are scattered areas of fibroglandular density. Mass: No suspicious masses. Architectural distortion: None. Calcifications: No suspicious calcifications. Asymmetric density: None. Skin thickening: None. Axillary adenopathy: None. IMPRESSION: No mammographic evidence of malignancy. Annual screening is recommended unless otherwise clinically indicated. ASSESSMENT: BI-RADS Category 1: Negative.
--- OUTSIDE RECORDS SUMMARY | 2024-11-24 16:30 | XMS_ITS | Clinical Summary ---
Author Organization [employer] Address [address] [place] [address] Care Team Providers Care Bed Laster Name Role Phone Unavailable Primary Care Provider Unavailabl e Social History Tobacco Use Types Packs/Day Years Used Date Smoking Tobacco: Never Assessed Comments Unknown Sex and Gender Information Value Date Recorded Sex Assigned at Female 12/13/2021 8:01 PM CDT Legal Sex Female 8:01 PM CDT Gender Identity Female 12/13/2021 8:01 PM CDT Sexual Orientation Not on file Plan of Treatment Not on file
--- OUTSIDE RECORDS SUMMARY | 2024-11-24 16:30 | XMS_ITS | Data Portability ---
Author Organization AL - [facility] - [facility] & MACIE Mendez ADMIN Address [address] [place] [address] Assessment Encounter Date Assessment Date Assessment LastModified by Organization Details LastModified Time 09/16/2024 09/16/2024 ASSESSMENT: Farrah Yip is a 49-year-old female with kidney stones and a gallbladder stone. PLAN: 1. Continue taking tamsulosin as prescribed. 2. Continue taking naproxen as needed for pain. 3. Order a repeat CT scan next week to confirm the presence or absence of kidney stones. 4. Schedule a follow-up phone call in two weeks to discuss the results of the CT scan and further management. 5. Patient was advised to call if she experiences severe pain or other concerning symptoms. [email or web address] Not available 09/16/2024 15:31:30 10/24/2024 10/24/2024 ASSESSMENT: Farrah Yip is a 49-year-old female with a history of kidney stones, bladder pressure, and a right ovarian cyst. PLAN: 1. Prescribed oxybutynin 10 mg extended-release , one tablet per day, to manage bladder symptoms. Advised that it may take a couple of weeks to notice improvement. 2. Discussed potential side effects of oxybutynin, including dry mouth and constipation, and advised to monitor for these symptoms. 3. Recommended follow-up in the office in approximately three weeks, barring any acute worsening of symptoms. 4. Advised the patient to discuss her symptoms and the medication with her internet manager during her upcoming appointment. 5. Plan to send the CT report to the patient's internet manager and primary care physician for further evaluation and coordination of care. Please note this report was created using voice recognition/text compilation software with [employer]'s documentation services during the encounter with the patient; Please excuse any errors due to the coffee shop aide process. [email or web address] Not available 10/24/2024 11:41:08 Plan of Treatment Reminders Order Date Submit Date Provider Last Modified By Organization Details Last Modified Time Details Appointments None recorded. Lab urinalysis, dipstick 2024 025 [email or web address] [place] [address], [address] [facility] [address], [place], [address], 16:28:38 Referral None recorded. Procedures None recorded. Surgeries None recorded. Imaging CT, abdomen + pelvis, w/o contrast [email or web address] [place] [address] (Centralized Scheduling), [address] [facility], [place], [address], 11:11:17 Medication Orders oxybutynin chloride ER 10 mg tablet,exte nded release 24 hr 2024 025 [facility], [address] [facility], [address], [place], [address], 11:46:24 Patient TargetsNo targets recorded. Patient InstructionsNo instructions recorded. Reason for Referral None Reported. Results Created Date Observation Date Name Description Value Unit Range Abnormal Flag Note LastModifiedBy Organization Detail LastModifiedTime 09/17/1909/16/2024 urina lysis , dipst ick Leukocytes (reference range) trace Not Available [place] [address] [address] [facility] [address], [place], [address], 09/16/2024 15:20:27 09/17/19 25 09/16/2024 urina lysis , dipst ick Nitrite (reference range:) negati ve Not Available [facility] [address] [facility] [address], [place], [address], 09/16/2024 15:20:27 09/17/19 25 09/16/2024 urina lysis , dipst ick Protein (reference range) trace Not Available [facility] [address] [facility] [address], [place], [address], 09/16/2024 15:20:27 09/17/19 25 09/16/2024 urina lysis , dipst ick pH (reference range 5-8.5) 5.0 Not Available [place] [address] [address] [facility] [address], [place], [address], 09/16/2024 15:20:27 09/17/19 25 09/16/2024 urina lysis , dipst ick Blood (reference range:) small Not Available [place] [address] [address] [facility] [address], [place], [address], 09/16/2024 15:20:27 09/17/19 25 09/16/2024 urina lysis , dipst ick Specific [place] (reference range) 1.000 Not Available [place] [address] [address] [facility] [address], [place], [address], 09/16/2024 15:20:27 09/17/19 25 09/16/2024 urina lysis , dipst ick Ketone (reference range) negati ve Not Available [place] [address] [address] [facility] [address], [place], [address], 09/16/2024 15:20:27 09/17/19 25 09/16/2024 urina lysis , dipst ick Bilirubin (reference range) negati ve Not Available [place] [address] [address] [facility] [address], [place], [address], 09/16/2024 15:20:27 09/17/19 25 09/16/2024 urina lysis , dipst ick Glucose (reference range) negati ve Not Available [place] [address] [address] [facility] [address], [place], [address], 09/16/2024 15:20:27 09/17/19 25 09/16/2024 urina lysis , dipst ick Color (reference range: yellow-brown ) Yellow Not Available [facility] [address] [facility] [address], [place], [address], 09/16/2024 15:20:27 10/14/19 25 10/13/2024 CT renal stone ABD/p el(no con) [facility] [address] [place] [address] Phone: Fax: Name: FARRAH YIP Exam Date: : 1974 Age 49 years Gender : F Access ion: [id number] Physic aureliano: QUAN HADDAD Facili ty: [facility] Facili ty HSV: Outpat ient Exam: CT RENAL STONE ABD/PE L(NO CON) CT ABDOME N PELVIS WITHOU T IV CONTRA ST RENAL CALCUL I, 12:22 PM CDT INDICA TION: calcul us of ureter TECHNI QUE: Axial unenha nced images with sagitt al and puckett l reform ats were obtain ed from the base of the lungs throug h the symphy sis pubis. Dose modula tion, automa riya exposu re contro l, and/or iterat rad recons tructi on techni que used for dose reduct ion. There are no prior studie s for compar zarina. FINDIN GS: There is a 0.3 cm nonobs tructi ng left lower pole renal calcul us. Rhea us phlebo liths in the pelvis simula te distal ureter al calcul i. There is no hydron ephros is, hydrou reter, or perine phric strand ing. The bladde r is unrema rkable . Sensit ivity of the remain panchito of the exam is decrea sed by the noncon trast techni que. A 0.5 cm calcul us is presen t in the nondil ated gallbl adder. The liver, spleen , adrena l glands , and pancre as are within normal limits . No abnorm al intest inal disten tion or dilati on is identi fied. The append ix is unrema rkable . The uterus and left ovary are unrema rkable . There is a 3.5 cm simple -appea ring right ovaria n cyst. No free intra- abdomi nal fluid or gas is visual ized. The bony struct ures are within normal limits . IMPRES SHANNAN: 1. Tiny nonobs tructi ng left lower pole renal calcul us. 2. Small gallst one withou t eviden ce of acute cholec ystiti s. Electr onical ly signed by: Storm Wilkins MD 2024 02:17 PM EDT RP Workst ation: [id number] Dictat ed By: Storm Wilkins Transc ribed By: Transc ribed On: 025 1:22 PM Electr onical ly signed by: Storm Wilkins 025 [facility] Legall y authen ticate d by JOE GARY 10-13 13:22: 41 CC'ed Logic: Orderi ng Provid er: BOO GLASS Attend ing Provid er: BOO GLASS Referr ing Provid er: BOO GLASS Admitt ing Provid er: BOO GLASS acrase6 [facility] [address], [place], [address], 10/15/2024 10:53:39 Result Notes None recorded. Problems Name Problem SNOMED Code Status Onset Date Resolution Date Notes Provider Name and Address Organization Details Recorded Time Ureteric stone 20409453 Active 2024 QUAN HADDAD MD [address], [place], [address] , [facility] & [place] 15:30:52 Hydronephr osis due to calculus of kidney and ureter 815398465 Active 2024 QUAN HADDAD MD [address], [place], [address] , [facility] [place] 5 15:31:02 Female genital organ symptoms 686014937 Active 2024 QUAN HADDAD MD [address], [facility] [address] , [facility] & [place] 5 11:38:50 Increased frequency of urination 477953673 Active [address], [facility] [address] , [facility] & [place] 5 11:39:07 Cyst of right ovary 0688379220226 9108 Active 2024 QUAN HADDAD MD [address], [facility] [address] , [facility] & [place] 5 11:44:50 Problem Notes None recorded. Medical Equipment None Reported. Allergies Allergen ID Allergen Name Allergen Category Reaction Reaction Severity Criticality Documentation Date Start Date Code Code System Note Provider Name and Address Organization Details Recorded Time 180628 morphine medicatio n Not available Not available Not available 09/15/2024 7052 RxNorm Alpa Lopez [facility], [facility] & [place] 5 09:57:28 Medications Name Sig Start Date Stop Date Status Note LastModified by Organization Details LastModified Time losartan 50 mg tablet Take 1 tablet every day by oral route. active Not Available Not Available No t Available oxybutynin chloride ER 10 mg tablet,extende d release 24 hr Take 1 tablet every day by oral route for 30 days. 2024 active Not Available Not Available Not Avai lable tamsulosin 0.4 mg capsule TAKE 1 CAPSULE BY MOUTH ONCE DAILY active Not Available Not Available No t Available ondansetron 4 mg disintegrating tablet DISSOLVE 1 TABLET IN MOUTH EVERY 8 HOURS NEEDED FOR NAUSEA AND VOMITING FOR 5 DAYS active Not Available Not Available No t Available oxycodone 5 mg tablet TAKE 1 TABLET BY MOUTH EVERY 8 HOURS NEEDED FOR PAIN active Not Available Not Available No t Available hydroxyzine HCl active Not Available Not Available Not Available losartan active Not Available Not Avai lable Not Available Excedrin Migraine active Not Available Not Available Not Available multivitamin active Not Available Not Available Not Available desvenlafaxine succinate ER 50 mg tablet,extende d release 24 hr Take 1 tablet every day by oral route. active Not Available Not Available No t Available cyanocobalamin (vit B-12) 5,000 mcg disintegrating tablet Take by oral route. active Not Available Not Available No t Available metoprolol succinate ER 100 mg capsule sprinkle, ext. release 24 hr Take 1 capsule every day by oral route. active Not Available Not Available No t Available EC-Naproxen 500 mg tablet,delayed release TAKE 1 TABLET BY MOUTH TWICE DAILY active Not Available Not Available No t Available ubrogepant 100 mg tablet Take by oral route. active Not Available Not Available No t Available Vitals Date Recorded Body height Body mass index (BMI) Body weight Oxygen saturation Oxygen saturation in Arterial blood by Pulse oximetry Heart rate Systolic blood pressure Diastolic blood pressure Provider Name and Address Organization Details Last Updated DateTime 5 162.56 cm 34.4 kg/m2 25711.1 9 g 98 % 98 % 100 /min 134 mm[Hg] 76 mm[Hg] Viky Monroeeno Karen [facility] 5 15:15:04 Social History None recorded. Functional Status Question Answer Note LastModified by Organizat ion Details LastModified Time Do you use any illicit or recreational drugs? No Information not available 09/16/2024 What is your level of alcohol consumption? None Information not available 09/16/2024 Mental Status None recorded. Family History Relationship Description Onset Age of this Age Resolved Age Notes LastModified by Organization Details LastModified Time Mother Hypertensive disorder [email or web address] Not available 09/16/2024 15:16:09 Mother Hyperlipidem ia [email or web address] Not available 09/16/2024 15:17:43 Father Aneurysm [email or web address] z1 Not available 09/16/2024 15:17:53 Medical History Condition Response Diabetes N Bleeding Disorder N Colon Cancer N Kidney Stones N Enlarged Prostate N Hyperlipidemia N Heart Disease N Cancer N Diverticulitis N Depression N Gynecological HistoryNo gynecological history recorded. Obstetrics History GPAL:G 0 P 0 0 0 0 Past Encounters Encounter ID Performer Location Encounter Start Date Encounter Closed Date Diagnosis/Indication Diagnosis SNOMED-CT Code Diagnosis ICD10 Code Diagnosis Note [id number] QUAN HADDAD MD [facility] Urology-1 00 [address] [facility] [address] [place] [address] 09/16/2024 14:56:11 09/16/2024 15:33:56 Ureteric stone 48882659 N20.1 Hydronephr osis due to calculus of kidney and ureter 870120959 N13.2 [id number] QUAN HADDAD MD [facility] Urology-1 00 [address] [facility] [address] [place] [address] 10/24/2024 09:31:12 10/24/2024 11:54:58 Female genital organ symptoms 108853955 R10.2 Increased frequency of urination 527808725 R35.0 Cyst of right ovary 1223 589299 2581854 N83.201 Health Concerns Section Related Observation LastModified by Organization Detai ls LastModified Time None Recorded Concern Status LastModified by Organization Details LastModified Time None Recorded Advance Directives Directive None Recorded Payers Insurance Date Sequence Insurance Name Policy Number Policy Ojeda Covered Member ID Ojeda Member ID Guarantor Name 10/28/2024 1 [place] [facility] [id number] Farrah Yip [id number] Farrah Yip Notes Date Note Type Note Provider Name and Address Organization Details Recorded Time 09/16/2024 text/html 09/16/24 Farrah Yip is a 49-year-old female who presents for a new patient visit. She reports that her symptoms began approximately one month ago, initially experiencing pressure in her hip and bladder. She visited her primary care doctor, who initially suspected a urinary tract infection and prescribed antibiotics. However, her urine culture came back clean, and the antibiotics did not alleviate her symptoms. An X-ray was performed to check for kidney stones, which was negative for kidney stones but revealed a gallbladder stone. Despite this finding, she did not experience typical gallbladder symptoms. She was referred to a urologist as her symptoms persisted and worsened, including a constant urge to urinate and feeling the need to urinate even after voiding. Over the weekend, she experienced pain on her left side. An ultrasound confirmed the presence of a gallstone, and a subsequent CT scan performed on Sunday demonstrated two stones close to the bladder. She was treated with Toradol in the ER and prescribed tamsulosin and naproxen. She reports taking tamsulosin on Sunday and Sunday but forgot to take it today. She has been taking naproxen regularly and has not experienced pain since. 09/14/34 CT ([facility]): Moderate left hydronephrosis and left hydroureter secondary to a 1 mm and a 4 mm stone in the distal left ureter. 3.5 cm right renal cyst.08/21/24 UA: Blood- large QUAN HADDAD MD [address] [facility], [place], [address], [facility] [place] & [place] 09/16/2024 16:28:58 10/24/2024 text/html 10/24/24 88-xcia-lfa-female present for Tele Visit for CT results. Farrah Yip is a 49-year-old female who presents for a telephonic visit. She has been experiencing a range of feelings, with a recent bad weekend characterized by intense pain and continued bladder pressure. The pressure is worse when her bladder is empty, giving her the sensation of needing to urinate urgently. She had a scan on September 14 at [facility], which showed stones blocking the left kidney, including a one-millimeter and a four-millimeter stone in the distal left ureter. A follow-up study on October 13 revealed a three-millimeter stone in the lower pole of the left kidney, which is not causing any symptoms. Additionally, the study noted numerous phleboliths in the pelvis, a five-millimeter stone in the gallbladder, and a ngmnu-qot-i-half-reza timeter cyst in the right ovary. Audio only tele visit was conducted for my office in [place] today. Patient identity was confirmed with name and date of . Verbal consent was given to proceed. --- 09/16/24 Farrah Yip is a 49-year-old female who presents for a new patient visit. She reports that her symptoms began approximately one month ago, initially experiencing pressure in her hip and bladder. She visited her primary care doctor, who initially suspected a urinary tract infection and prescribed antibiotics. However, her urine culture came back clean, and the antibiotics did not alleviate her symptoms. An X-ray was performed to check for kidney stones, which was negative for kidney stones but revealed a gallbladder stone. Despite this finding, she did not experience typical gallbladder symptoms.She was referred to a urologist as her symptoms persisted and worsened, including a constant urge to urinate and feeling the need to urinate even after voiding. Over the weekend, she experienced pain on her left side. An ultrasound confirmed the presence of a gallstone, and a subsequent CT scan performed on Sunday demonstrated two stones close to the bladder. She was treated with Toradol in the ER and prescribed tamsulosin and naproxen. She reports taking tamsulosin on Sunday and Sunday but forgot to take it today. She has been taking naproxen regularly and has not experienced pain since. 10/13/24 CT abd/pel w/o ([facility]): There is a 0.3 cm non-obstructing left lower pole renal calculus. Numerous phleboliths in the pelvis simulate distal ureteral calculi. There isno hydronephrosis, hydroureter, or perinephric stranding. The bladder is unremarkable.Sensiti vity of the remainder of the exam is decreased by the non-contrasttechniqu e. A 0.5 cm calculus is present in the nondilated gallbladder. Theliver, spleen, adrenal glands, and pancreas are within normal limits. Noabnormal intestinal distention or dilation is identified. The appendix isunremarkable. The uterus and left ovary are unremarkable. There is a 3.5 cmsimple-appearing right ovarian cyst. No free intra-abdominal fluid or gas isvisualized. The bony structures are within normal limits. 09/14/24 CT ([facility]): Moderate left hydronephrosis and left hydroureter secondary to a 1 mm and a 4 mm stone in the distal left ureter. 3.5 cm right renal cyst.08/21/24 UA: Blood- large QUAN HADDAD MD [address] [facility], [place], [address], [facility] [place] & [place] 10/24/2024 11:46:37 OBGyn Episode No OBEpisode recorded.
--- OUTSIDE RECORDS SUMMARY | 2024-11-24 16:30 | XMS_ITS | Referral Summary ---
Author Organization As Seen on TV In [employer]atives Address [address] [place] [address] Care Team Providers Care Head Grease Maker Name Role Phone Unavailable Primary Care Provider [...]
--- OUTSIDE RECORDS SUMMARY | 2024-11-24 16:30 | XMS_ITS | Clinical Summary ---
Author Organization Healthcare Address [address] [place] [address] Care Team Providers Care Stripper Apprentice Name Role Phone Jean Millan MD Primary Care Provider [phone] Allergies Active Allergy Reactions Criticality Noted Date Comments Morphine Unknown - Patient st ates they do not know rxn details Low 03/12/2012 Medications metoprolol succinate XL (Toprol-XL) 100 MG 24 hr tablet Take 100 mg by mouth 1 (one) time each day. Do not crush or chew. Active losartan (Cozaar) 50 MG tablet Take 50 mg by mouth 1 (one) time each day. Active Active Problems No known active problems Immunizations Immunization Administration Dates Next Due Hep A, Adult 07/13/2021,12/31/2019 Influenza, seasonal, injectable 04/05/2020,04/04,04/02/2017 PPD Skin Test (TB Skin Test) 08/25/2016, 07/23/2015,07/22/2014,2013,08/12/2012,03/12/2012 TD (adult), 2 Lf tetanus tox oid, preservative free, adsorbed 05/25/2010 Tdap 03/03/2017 Family History Medical History Relation Name Comments Colon polyps Father Osteoarthritis Father Benign Essential Hypertension Mother Colon polyps Mother Endometriosis Mother Hyperlipidemia Mother Heart attack Other Alzheimer's disease Paternal Grandfather Cervical cancer Sister Relation Name Status Comments Father Mother Other Paternal Grandfather Sister Social History Tobacco Use Types Packs/Day Years Used Date Smoking Tobacco: Never Smokeless Tobacco: Never Tobacco Cessation:Counseling Given: Not Answered Alcohol Use Standard Drinks/Week Comments No 0 (1 standard drink = 0.6 oz pure alcohol) Alcoholic Drinks/day: Never Drank Alcohol PHQ-2 Answer Date Recorded Patient Health Questionnaire-2 Score 0 07/19/2022 PHQ-2A Answer Date Recorded Depression Risk 0 07/19/2022 Comments Unknown Sex and Gender Information Value Date Recorded Sex Assigned at Not on file Legal Sex Female 7:50 PM EDT Gender Identity Not on file Sexual Orientation Not on file Last Filed Vital Signs Vital Sign Reading Time Taken Comments Blood Pressure 144/90 10/12/2023 9:53 AM EDT Pulse 65 10/12/2023 9:53 AM EDT Temperature 36.4 C (97.6 F) 10/12/2023 9:06 AM EDT Respiratory Rate 16 12/31/2019 9:52 AM EDT Oxygen Saturation - - Inhaled Oxygen Concentration - - Weight 90.6 kg (199 lb 12.8 oz) 10/12/2023 9:06 AM EDT Height 162.6 cm (5' 4 ) 10/12/2023 9:06 AM EDT Body Mass Index 34.3 10/12/2023 9:06 AM EDT Plan of Treatment Health Maintenance Due Date Last Done Comments [facility]-HIV Screening 1975 [facility]-Hepatitis C Screening 1975 [facility]-Infant/Child/Adol SDOH Screenings 1975 [facility]- SDOH Screenings 1993 [facility]-Adult SDOH Screenings 1993 [facility]-Hepatitis B Vaccines (1 of 3 - 19+ 3-dose series) 1994 [facility]-Pap Smear 1996 [facility]-Cervical Cancer Screening 2005 [facility]-HPV/Cotest 2005 CT Colonography 2020 Colonoscopy 2020 FIT-DNA 2020 FIT 2020 FOBT 2020 Sigmoidoscopy 2020 [facility]-Colorectal Cancer Screening 2020 [facility]-Depression Screening 07/19/2023 023, 07/19/2022 [id number] Vaccine (1 - season) 2024 [facility]-Influenza Vaccine (Seaso n Ended) 2025 04/05/2020, 04/04/2019, 04/02/2017 [facility]-Zoster Vaccines (1 of 2) 2025 [facility]-DTaP,Tdap,and Td Vaccine s (2 - Td or Tdap) 03/03/2027 03/03/2017, 05/25/2010 [facility]-Hepatitis A Vaccines Aged Out 022, 12/31/2019 No longer eligible based on patient's age to complete this topic [facility]-Obesity Intervention Completed 024, 07/19/2022 HPV Vaccines Aged Out No longer eligi ble based on patient's age to complete this topic [facility]-HIB Vaccines Aged Out No longer e ligible based on patient's age to complete this topic [facility]-IPV Vaccines Aged Out No longer e ligible based on patient's age to complete this topic [facility]-Pneumococcal Vaccine: Pediatrics (0 to 5 Years) and At-Risk Patients (6 to 49 Years) Aged Out No longer eligible b ased on patient's age to complete this topic [facility]-Rotavirus Vaccines Aged Out No lo nger eligible based on patient's age to complete this topic Insurance Care Teams Stripper Apprentice Relationship Specialty Start Date End Date Jean Millan MD [facility] [place] [address] [address] PCP - General 10/29/20
--- OUTSIDE RECORDS SUMMARY | 2024-11-24 16:30 | XMS_ITS | Clinical Summary ---
Author Organization [facility] Address [address] [place] [address] Phone [email or web address] Care Team Providers Care Buildings And Grounds Superintendent Name Role Phone Viviane Sullivan Primary Care Provider Unavailabl e Social History Tobacco Use Types Packs/Day Years Used Date Smoking Tobacco: Never Assessed Intimate Partner Violence Answer Date R ecorded Insults You Not on file 09/27/2020 Threatens You Not on file 09/27/2020 Screams at You Not on file 09/27/2020 Physically Hurt Not on file 09/27/2020 Intimate Partner Violence Score Not on file 09/27/2020 Stress Answer Date Recorded Stress in your Life Not on file 04/20/2024 Dealing with Stress 3 04/20/2024 Comments Unknown Sex and Gender Information Value Date Recorded Sex Assigned at Female 09/25/2023 9:07 AM CDT 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 [employer] Gender Identity Female 09/25/2023 9:07 AM CDT Sexual Orientation Not on file Plan of Treatment Health Maintenance Due Date Last Done Comments Dental Cleaning/Exam 1975 HIV Screening 1975 Hepatitis C Screening 1975 Cervical Cancer Screening 1991 Annual Preventive Exam 1993 Hep B Infection Screening - Triple Screen 1993 Hepatitis B Immunization (1 of 3 - 19+ 3-dose series) 1994 Colorectal Cancer Screening 2005 Breast Cancer Screening 11/29/2022 11/29/2020 Covid-19 Immunization ( season) 2024 Influenza Immunization (Season Ended) 2025 04/05/2020, 04/04/2019, 04/02/2017 Tetanus Diphtheria and Pertussis Immunization (2 - Td or Tdap) 03/03/2027 03/03/2017, 05/25/2010 Hepatitis A Immunization Aged Out 022, 12/31/2019 No longer eligible based on patient's age to complete this topic HIB Immunization Aged Out No longer e ligible based on patient's age to complete this topic HPV Immunization Aged Out No longer e ligible based on patient's age to complete this topic Pneumococcal: Ped (0 to 5 Yrs) and At-Risk Member (6 to 64 Yrs) Aged Out No longer eligible b ased on patient's age to complete this topic Polio Immunization Aged Out No longer eligible based on patient's age to complete this topic Insurance ANTHEM NO COPAY NB Care Teams Buildings And Grounds Superintendent Relationship Specialty Start Date End Date Viviane Sullivan [place] PCP - General Daycare Teacher 09/26/23
--- OUTSIDE RECORDS SUMMARY | 2024-11-24 16:30 | XMS_ITS | Continuity of Care Document ---
Author Organization [facility] Address [address] [place] [address] Assessment Encounter Date Assessment Date Assessment LastModified by Organization Details LastModified Time 10/24/2024 10/24/2024 ASSESSMENT: Farrah Hayward is a 49-year-old female with a history [...] her symptoms and the medication with her lamp decorator during her upcoming appointment. 5. Plan to send the CT report to the patient's lamp decorator and primary care physician for further evaluation and coordination of care. Please note this report was created using voice recognition/text compilation software with [employer]'s documentation services during the encounter with the patient; Please excuse any errors due to the wallpaper printer helper process. [email or web address] Not available 10/24/2024 11:41:08 Plan of Treatment Reminders Order Date Submit Date Provider Last Modified By Organization Details Last Modified Time Details Appointments None recorded. Lab None recorded. Referral None recorded. Procedures None recorded. Surgeries None recorded. Imaging None recorded. Medication Orders oxybutynin chloride ER 10 mg tablet,exte nded release 24 hr 2024 025 [facility], [address], [address], [place], [address], 5 11:46:24 Patient TargetsNo targets recorded. Patient InstructionsNo instructions recorded. Reason for Referral None Reported. Results Created Date Observation Date Name Description Value Unit Range Abnormal Flag Note LastModifiedBy Organization Detail LastModifiedTime 10/14/1910/13/2024 CT renal stone ABD/p el(no con) [facility] [address] [place] [address] Phone: Fax: Name: FARRAH HAYWARD Exam Date: 025 : 1974 Age 49 years Gender : F Access ion: [id number] Physic aureliano: QUAN HADDAD Facili ty: [facility] Facili ty HSV: Outpat ient Exam: CT RENAL STONE ABD/PE L(NO CON) CT ABDOME N PELVIS WITHOU T IV CONTRA ST RENAL CALCUL I, 025 12:22 PM CDT INDICA TION: calcul us [...] Thank you for referr FARRAH Sanchez to [facility]. Legall y authen ticate d by JOE GARY 10-13 13:22: 41 CC'ed Logic: Orderi ng Provid er: BOO GLASS Attend ing Provid er: BOO GLASS Referr ing Provid er: BOO GLASS Admitt ing Provid er: BOO GLASS acrase6 [facility] [address] , [place], [address], 10/15/2024 10:53:39 Result Notes None recorded. Problems Name Problem SNOMED Code Status Onset Date Resolution Date Notes Provider Name and Address Organization Details Recorded Time Ureteric stone 58773810 Active 2024 QUAN HADDAD MD [address], [place], [address] , [place] - [place] - [place] & [place] 15:30:52 Hydronephr osis due to calculus of kidney and ureter 958708284 Active 2024 QUAN HADDAD MD [address], [place], [address] , [place] [facility] - [place] & [place] 15:31:02 Female genital organ symptoms 300946826 Active [address], [place], [address] , [facility] & [place] 5 11:38:50 Increased frequency of urination 621392970 Active [address], [place], [address] , [facility] & [place] 5 11:39:07 Cyst of right ovary 8092216622504 9108 Active [address], [place], [address] , [facility] & [place] 5 11:44:50 Problem Notes None recorded. Medical Equipment None Reported. Allergies Allergen ID Allergen Name Allergen Category Reaction Reaction Severity Criticality Documentation Date Start Date Code Code System Note Provider Name and Address Organization Details Recorded Time 826928 morphine medicatio n Not available Not available Not available 09/15/2024 7052 RxNorm Alpa Lopez [facility], [facility] & [place] 5 09:57:28 Medications Name Sig Start Date [...] Available Not Available No t Available Vitals None Recorded Social History None recorded. Functional Status Question [...] SNOMED-CT Code Diagnosis ICD10 Code Diagnosis Note [id number] QUAN HADDAD MD [facility] [address] [place] [address] 10/24/2024 09:31:12 10/24/2024 11:54:58 Female genital organ symptoms 537967559 R10.2 Increased frequency of urination 902893834 R35.0 Cyst of right ovary 1223 531594 2515259 N83.201 Health Concerns Section Related Observation LastModified by Organization Detai ls LastModified Time None Recorded Concern Status LastModified by Organization Details LastModified Time None Recorded Payers Encounter Date Sequence Insurance Name Policy Number Policy Ojeda Covered Member ID Ojeda Member ID Guarantor Name 10/24/2024 1 [place] [id number] Farrah Hayward [id number] Farrah Hayward Notes Date Note Type Note Provider Name and Address Organization Details Recorded Time 10/24/2024 text/html 10/24/24 [id number] present for Tele Visit for CT results. Farrah Hayward is a 49-year-old female who presents for a telephonic visit. She has been experiencing a range of feelings, with a recent bad weekend characterized by intense pain and continued bladder pressure. The pressure is worse when her bladder is empty, giving her the sensation of needing to urinate urgently. She had a scan on September 14 at [facility], which showed stones blocking the left kidney, including a one-millimeter and a four-millimeter stone in the distal left ureter. A follow-up study on October 13 revealed a three-millimeter stone in the lower pole of the left kidney, which is not causing any symptoms. Additionally, the study noted numerous phleboliths in the pelvis, a five-millimeter stone in the gallbladder, and a mfnbv-jlo-l-half-reza timeter cyst in the right ovary. Audio only tele visit was conducted for my office in [place] today. Patient identity was confirmed with name and date of . Verbal consent was given to proceed. --- 09/16/24 Farrah Hayward is a 49-year-old female who presents for [...] experienced pain since. 10/13/24 CT abd/pel w/o ([facility]): There is a 0.3 cm non-obstructing left [...] structures are within normal limits. 09/14/24 CT ([facility]): Moderate left hydronephrosis and left hydroureter secondary to a 1 mm and a 4 mm stone in the distal left ureter. 3.5 cm right renal cyst.08/21/24 UA: Blood- large QUAN HADDAD MD [address], [place], [address], [place] & [place] 10/24/2024 11:46:37 OBGyn Episode No OBEpisode recorded.
== END 2024-11-24 23:59 | disposition home or self-care (01) ==
LOC: RAD 16:29
PROVIDERS: PCP Nurse Practitioner Family; Visit Provider Obstetrics & Gynecology
DX: Z12.31 Encounter for screening mammogram for malignant neoplasm of breast (principal); Z01.419 Encounter for gynecological examination (general) (routine) without abnormal findings; R92.323 Mammographic fibroglandular density, bilateral breasts
CPT/HCPCS: 77063; 77067

== ENCOUNTER 2025-05-08 14:29 | Outpatient (CLI) | payer BC, SELFPAY ==
--- OUTSIDE RECORDS SUMMARY | 2025-05-08 14:32 | XMS_ITS | Clinical Summary ---
Author Organization [facility] Address [address] [place] [address] Phone 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 Gender Identity Female 09/25/2023 9:07 AM CDT Sexual Orientation Not on file Plan of Treatment Health Maintenance Due Date Last Done Comments CT Colonography 1975 Cervical Cancer Screening Combo 1975 Colonoscopy 1975 Colorectal Cancer Screening Combo 1975 DNA Cologuard 1975 Dental Cleaning/Exam 1975 FIT or FOBT Test 1975 HIV Screening 1975 HPV only / HPV + Pap 1975 Hepatitis C Screening 1975 Pap only testing 1975 Sigmoidoscopy 1975 Annual Preventive Exam 1993 Hep B Infection Screening - Triple Screen 1993 Hepatitis B Immunization (1 of 3 - 19+ 3-dose series) 1994 Breast Cancer Screening 11/29/2022 11/29/2020 Covid-19 Immunization ( - season) 2025 Influenza Immunization (#1) 02/16/202503/18, 04/04/2019, 04/02/2017 Tetanus Diphtheria and Pertussis Immunization (2 - Td or Tdap) 03/03/2027 03/03/2017, 05/25/2010 Hepatitis A Immunization Aged Out 07/13/ 022, 12/31/2019 No longer eligible based on patient's age to complete this topic HIB Immunization Aged Out No longer e ligible based on patient's age to complete this topic HPV Immunization Aged Out No longer e ligible based on patient's age to complete this topic Pneumococcal Immunization Aged Out No longer eligible based on patient's age to complete this topic Polio Immunization Aged Out No longer eligible based on patient's age to complete this topic Insurance DEMETRIO NO COPAY NB Care Teams Pharmacy Sales Representative Relationship Specialty Start Date End Date Viviane Sullivan [place] PCP - General Blacksmith Helper 09/26/23
--- OUTSIDE RECORDS SUMMARY | 2025-05-08 14:32 | XMS_ITS | Clinical Summary ---
Author Organization [facility] Address [address] [place] [address] Care Team Providers Care Surface Grinding Machine Hand Name Role Phone Jean Millan MD Primary Care Provider [phone] Allergies Active Allergy Reactions Criticality Noted Date [...] [facility]-HIV Screening 1975 [facility]-Hepatitis C Screening 1975 [facility]-/Child/Adol SDOH Screenings 1975 [facility]- SDOH Screenings 1993 [facility]-Adult SDOH Screenings 1993 [facility]-Hepatitis B Vaccines (1 of 3 - 19+ 3-dose series) 1994 [facility]-Pap Smear 1996 [facility]-Cervical Cancer Screening 2005 [facility]-HPV/Cotest 2005 CT Colonography 2020 Colonoscopy 2020 FIT-DNA 2020 FIT 2020 FOBT 2020 Sigmoidoscopy 2020 [facility]-Colorectal Cancer Screening 2020 [facility]-Depression Screening 07/19/2023 023, 07/19/2022 [id number] Vaccine (1 - 2024- season) 2025 [facility]-Influenza Vaccine (#1) 02/16/202504/05, 04/04/2019, 04/02/2017 [facility]-Zoster Vaccines (1 of 2) [...] to complete this topic Insurance Care Teams Surface Grinding Machine Hand Relationship Specialty Start Date End Date Jean Millan MD [address] [place] [id number] PCP - General 10/29/20
--- NOTE | 2025-05-08 14:51 | XR_ITS ---
FINAL REPORT CLINICAL HISTORY: right great toe pain FINDINGS: AP, oblique and lateral views of the right foot were obtained. There is no prior exam for comparison. There is no acute osseous abnormality of the right foot. Mild degenerative disease is noted of the first MTP joint. There is soft tissue edema along the dorsum of the foot. IMPRESSION: No acute osseous abnormality of the right foot. Mild degenerative changes and soft tissue edema. Reviewed, Interpreted and Dictated by Zeinab Encinas MD Transcribed by Leda Landon Authenticated and [facility]
[2025-05-08 15:10] LABS: Hematocrit 39.8 % (37.0-47.0); Hemoglobin 12.6 g/dL (12.2-16.2); Immature Granulocytes % 0.4 %; Mean Corpuscular HGB Conc 31.7 g/dL (31.8-35.4); Mean Corpuscular Hemoglobin 29.4 pg (27.0-31.2); Mean Corpuscular Volume 93.0 fl (81-99); Nucleated Red Blood Cells % 0 %; Platelet Count 302 K/mm3 (142-424); Red Blood Count 4.28 M/mm3 (4.20-5.40); Red Cell Distribution Width-SD 42.9 fL; White Blood Count 7.5 K/mm3 (4.8-10.8)
[2025-05-08 16:16] LABS: Uric Acid 5.2 mg/dl (2.5-6.2)
[2025-05-08 16:21] LABS: C-Reactive Protein 23.3 mg/L (0-4)
== END 2025-05-08 23:59 | disposition home or self-care (01) ==
LOC: LAB 14:30
PROVIDERS: PCP Nurse Practitioner Family; Visit Provider Nurse Practitioner Family
DX: M79.674 Pain in right toe(s) (principal); R53.83 Other fatigue
CPT/HCPCS: 36415; 73630; 84550; 85025; 85651; 86140